=== PATIENT | female | born 1990 | race Two or more races ===

== ENCOUNTER → 2017-03-26 | Outpatient (CLI) | payer OTHER ==
[~2017-03-26] MED LIST: None per pt
[2017-03-26 16:46] LABS: HEMOGLOBIN 14.8 g/dL (11.7-16.4); WHITE BLOOD COUNT 5.6 x10^3/uL (3.4-10)
[2017-03-26 16:57] LABS: BLOOD UREA NITROGEN 11 mg/dL (7-18)
[2017-03-26 17:02] LABS: ASPARTATE AMINO TRANSFERASE 21 U/L (15-37)
== END | disposition home or self-care (01) ==
LOC: STAR 15:47
PROVIDERS: ATTEND Obstetrics & Gynecology Gynecology
DX: Z01.818 Encounter for other preprocedural examination (principal); N93.9 Abnormal uterine and vaginal bleeding, unspecified; L91.8 Other hypertrophic disorders of the skin
CPT/HCPCS: 36415; 80053; 81003; 84702; 85025

== ENCOUNTER → 2019-06-28 | Outpatient (CLI) | payer OTHER ==
[~2019-06-28] MED LIST changes: +None per Pt.
[2019-06-28 08:52] LABS: BASOPHILS # (AUTO) 0.04 x10^3/uL (0-0.1); BASOPHILS % (AUTO) 1 % (0-1); EOSINOPHILS # (AUTO) 0.11 x10^3/uL (0-0.4); EOSINOPHILS % (AUTO) 3 % (1-7); LYMPHOCYTES # (AUTO) 1.65 x10^3/uL (1-3.4); LYMPHOCYTES % (AUTO) 41 % (22-44); MD NO; MEAN CORPUSCULAR HEMOGLOBIN 29.6 pg (27.0-34.8); MEAN CORPUSCULAR HGB CONC 33.9 g/dL (32.4-35.8); MEAN CORPUSCULAR VOLUME 87.2 fL (80-100); MEAN PLATELET VOLUME 8.8 fL (7.4-10.4); MONOCYTES # (AUTO) 0.35 x10^3/uL (0.2-0.8); MONOCYTES % (AUTO) 9 % (2-9); NEUTROPHILS % (AUTO) 47 % (42-75); PLATELET COUNT 244 x10^3/uL (130-400); RED BLOOD COUNT 4.75 x10^6/uL (3.82-5.3); RED CELL DISTRIBUTION WIDTH 13.1 % (9.6-15.2)
[2019-06-28 08:54] LABS: HCG UR SG 1.032 (1.003-1.030)
[2019-06-28 09:03] LABS: ANION GAP 5 mmol/L (5-15); CALCIUM 8.9 mg/dL (8.5-10.1); CHLORIDE 107 mmol/L (98-107); CREATININE 0.85 mg/dL (0.55-1.02)
== END | disposition home or self-care (01) ==
LOC: STAR 07:58
PROVIDERS: ATTEND Obstetrics & Gynecology Gynecology
DX: Z01.818 Encounter for other preprocedural examination (principal); N93.9 Abnormal uterine and vaginal bleeding, unspecified; N84.0 Polyp of corpus uteri
CPT/HCPCS: 36415; 80048; 81025; 85025

== ENCOUNTER 2019-07-04 08:02 | Day surgery (SDC) | payer OTHER ==
[~2019-07-04] VITALS: Ht 157.5 cm; Wt 72.8 kg
[2019-07-04] MEDS ORDERED: LACTATED RINGERS 1,000 ML IV SCH (08:27)
[2019-07-04 08:32] VITALS: BP 128/73
[2019-07-04 08:39] LABS: HCG UR SG 1.005 (1.003-1.030)
[2019-07-04] MEDS ORDERED: LIDOCAINE-MPF 1%, 2ML INFIL ONE (09:00)
[2019-07-04] MEDS ORDERED: SILVER NITRATE STICK TP ONE (09:34)
[2019-07-04] MEDS ORDERED: MIDAZOLAM 1 MG/ML, 2ML ONE (09:37)
[2019-07-04] MEDS ORDERED: FENTANYL PF 100 MCG/2ML ONE (09:37)
[2019-07-04] MEDS ORDERED: PROPOFOL 10 MG/ML, 20ML ONE (09:43)
[2019-07-04] MEDS ORDERED: ONDANSETRON 2MG/ML, 2ML ONE (09:43)
[2019-07-04] MEDS ORDERED: KETOROLAC 30 MG/1 ML ONE (09:43)
[2019-07-04] MEDS ORDERED: DEXAMETHASONE 4 MG/ML, 1ML ONE (09:43)
[2019-07-04] MEDS ORDERED: ACETAMINOPHEN 325 MG TABLET PO PRN (10:30)
[2019-07-04] MEDS ORDERED: OXYcodone 5 MG/5 ML ORAL.SOL UDC PO PRN (10:30)
[2019-07-04] MEDS ORDERED: MEPERIDINE/PF 25MG/ML,1ML IVPush PRN (10:30)
[2019-07-04] MEDS ORDERED: FENTANYL PF 100 MCG/2ML IV PRN (10:30)
[2019-07-04] MEDS ORDERED: hydrALAzine 20 MG/ML, 1ML IV PRN (10:30)
[2019-07-04] MEDS ORDERED: HALOPERIDOL 5 MG/ML IV PRN (10:30)
[2019-07-04] MEDS ORDERED: HYDROmorphone 2 MG/ML, 1ML IVPush PRN (10:30)
[2019-07-04] MEDS ORDERED: OXYcodone 5 MG/5 ML ORAL.SOL UDC ONE (10:38)
[2019-07-04] MEDS ORDERED: MEPERIDINE/PF 25MG/ML,1ML ONE (10:38)
[2019-07-04] MEDS ORDERED: ACETAMINOPHEN 650 MG/20.3 ML UDC ONE (10:38)
== END 2019-07-04 12:20 | disposition home or self-care (01) ==
LOC: OUT 08:02
PROVIDERS: ATTEND Obstetrics & Gynecology Gynecology
DX: N93.9 Abnormal uterine and vaginal bleeding, unspecified (principal); N84.0 Polyp of corpus uteri; M32.9 Systemic lupus erythematosus, unspecified; J45.909 Unspecified asthma, uncomplicated; Z79.899 Other long term (current) drug therapy; Z90.49 Acquired absence of other specified parts of digestive tract; Z98.51 Tubal ligation status; Z83.42 Family history of familial hypercholesterolemia
CPT/HCPCS: 58563; 81025; 88305; J1100; J1885; J2175; J2250; J2405; J2704; J3010; J7120